=== PATIENT | female | born 1965 | race Caucasian/White ===

== ENCOUNTER 2017-02-16 14:39 | Outpatient (CLI) | payer OTHER ==
--- NOTE | 2017-02-16 18:13 | RAD ---
2 VIEWS OF CHEST: Date: 02/16/17 COMPARISON: 12/30/15. CLINICAL HISTORY: Tuberculosis exposure. FINDINGS: There is stable prominence of the cardiac silhouette. There is pulmonary vascular congestion with in terstitial edema bilaterally. No significant effusion or discrete pneumothorax. IMPRESSION: Findings of fluid overload. Correlate clinically. As necessary, imaging follow-up may be obtained. POS: [facility]
== END 2017-02-16 14:40 | disposition home or self-care (01) ==
LOC: MADRAD 14:39
PROVIDERS: ATTEND Family Medicine
DX: R76.11 Nonspecific reaction to tuberculin skin test without active tuberculosis (principal); J94.8 Other specified pleural conditions
CPT/HCPCS: 71020